=== PATIENT | female | born 1970 | race Caucasian/White ===

== ENCOUNTER 2018-08-26 14:24 | Emergency (ER) | payer BC, OTHER ==
[~2018-08-26] VITALS: Ht 167.6 cm; Wt 127.0 kg
--- NOTE | ~2018-08-26 | EKG ---
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
[2018-08-26] MEDS ORDERED: LISINOPRIL20 MG PO (14:31)
[2018-08-26 15:17] LABS: ABSOLUTE NEUTROPHILS 5.1 thou/uL (1.4-8.2); BASOPHILS 0.8 % (0.0-2.0); EOSINOPHILS 1.8 % (0.0-3.0); HEMATOCRIT 35.2 % (37.0-47.0); HEMOGLOBIN 11.8 gm/dL (12.0-15.0); LYMPHOCYTES 28.4 % (24.0-44.0); MCH 27.3 pg (26.0-34.0); MCHC 33.5 g/dL (28.0-37.0); MCV 81.4 fL (80.0-100.0); MONOCYTES 5.2 % (1.0-8.0); PLATELET COUNT 382 thou/uL (150-400); POLYS 63.8 % (36.0-66.0); RBC 4.32 mil/uL (4.20-5.00); RDW 14.3 % (10.5-14.5)
[2018-08-26 15:28] LABS: ANION GAP 8 mmol/L (7-16); BUN 13 mg/dL (7-18); CALCIUM 9.3 mg/dL (8.5-10.1); CHLORIDE 102 mmol/L (98-107); CO2 29 mmol/L (21-32); CREATININE 0.8 mg/dL (0.6-1.0); GLUCOSE 101 mg/dL (74-106); POTASSIUM 3.9 mmol/L (3.5-5.1); SODIUM 139 mmol/L (136-145)
[2018-08-26 15:35] LABS: ALBUMIN 3.5 g/dL (3.4-5.0); SGOT 19 U/L (15-37); SGPT 30 U/L (30-65); TOTAL BILIRUBIN 0.2 mg/dL (<0.1-1.0); TOTAL PROTEIN 7.9 g/dL (6.4-8.2); TROPONIN-I <0.06 ng/mL (<0.06)
[2018-08-26] MEDS ORDERED: MOBIC15 MG PO (16:10)
[2018-08-26] MEDS ORDERED: TESSALON PERLE100 MG PO (16:10)
[2018-08-26 16:38] VITALS: BP 135/86
== END 2018-08-26 16:42 | disposition home or self-care (01) ==
LOC: ER 14:24
PROVIDERS: Physician Assistant
DX: R07.89 Other chest pain (principal); R05 Cough; R06.02 Shortness of breath; Z88.2 Allergy status to sulfonamides